=== PATIENT | female | born 1970 | race Caucasian/White ===

== ENCOUNTER → 2018-06-21 | Day surgery (SDC) | payer OTHER ==
--- NOTE | 2018-06-21 13:01 | OP ---
DATE OF OPERATION: 06/21/2018 PREOPERATIVE DIAGNOSIS: Abnormal left mammography, POSTOPERATIVE DIAGNOSIS: Abnormal left mammography. PROCEDURE: Left stereotactic needle biopsy with clips. SURGEON: Luz Polo MD ANESTHESIA: Local. COMPLICATIONS: None. This was a sterile procedure. INDICATIONS FOR PROCEDURE: Patient presented for a routine screening mammogram that again noted microcalcifications in the upper outer left breast for which a biopsy was recommended. The procedure was discussed that included need for a clip. PROCEDURE IN DETAIL: Patient was brought to [facility]. Lilian Wolff, laid prone on the [place] table. Using the lateral approach, the calcifications in the upper outer left breast were identified. A sterile prep was obtained. A target was chosen, there was a positive stroke margin. Using Betadine and 1% lidocaine, a 10-gauge Suros device was used to take several cores from this area, cores with calcifications within them. These were handled with usual calcification protocol. An 0-shaped clip was deployed in the area. Hemostasis was ensured with direct pressure. The incision was closed with Steri-Strips. She tolerated the procedure well and left the breast imaging center in good condition. LUZ POLO M.D. [id number]
--- NOTE | 2018-06-22 13:11 | PATH ---
Surgical Pathology Report Patient Name: CHAVO BANUELOS Med. Rec. #: [id number] /Age/Gender: 1970 (Age: 47) / F Account: [id number] Location: [facility] Taken: 06/21/2018 Received: 06/21/2018 Reported: 06/22/2018 Physicians: Nellie Ballesteros M.D. Specimen(s) Received A: LEFT BREAST SPECIMEN WITH CALCIFICATIONS B: LEFT SPECIMEN WITHOUT CALCIFICATIONS Clinical History Nonpalpable lesion Mammographic findings: Microcalcification, suspicious Final Diagnosis A. BREAST, LEFT WITH CALCIFICATIONS, STEREOTACTIC CORE BIOPSY: BENIGN BREAST TISSUE WITH FIBROCYSTIC CHANGES INCLUDING STROMAL FIBROSIS AND MICROCYSTS WITH ASSOCIATED RARE MICROCALCIFICATIONS. B. BREAST, LEFT WITHOUT CALCIFICATIONS, STEREOTACTIC CORE BIOPSY: BENIGN BREAST TISSUE WITH FIBROCYSTIC CHANGES INCLUDING STROMAL FIBROSIS, FOCAL COLUMNAR CELL CHANGE, AND MICROCYSTS WITH ASSOCIATED MICROCALCIFICATIONS. Electronically Signed Marilu Renee M.D. Gross Description A. Received in formalin labeled "left breast with calcifications," is a 3 cm in length x 0.3 cm in diameter barfield-yellow, cylindrical portion of fibroadipose tissue. The specimen is submitted in toto in one cassette. B. Received in formalin labeled "left breast without calcifications," is a 3.5 x 2.5 x 0.3 cm aggregate of barfield-yellow, irregular to cylindrical portions of fibroadipose tissue. The formalin is filtered and the specimen is entirely submitted in 2 cassettes. Time to formalin fixation: 5 minutes Total formalin fixation time: Approximately 6 hours. 06/21/2018 [facility]06/21/2018
== END | disposition home or self-care (01) ==
LOC: FMAMMOTONE 10:47
PROVIDERS: ATTEND Surgery
PROC: 0HBU3ZX Excision of Left Breast, Percutaneous Approach, Diagnostic (ICD-10-PCS; principal; 2018-06-21)
DX: N60.32 Fibrosclerosis of left breast (principal); N60.12 Diffuse cystic mastopathy of left breast; N64.89 Other specified disorders of breast; R92.8 Other abnormal and inconclusive findings on diagnostic imaging of breast
CPT/HCPCS: 19081; 87899; 88305-TC; A4648

== ENCOUNTER 2019-03-26 16:48 | Emergency (ER) | payer SELFPAY ==
[2019-03-26 16:56] VITALS: BP 159/88; PULSE 74; TEMP 98; BMI 22.6
[2019-03-26] MEDS ORDERED: IBUPROFEN 600 MG TABLET (FP) PO ONE ×2 (17:30→18:00)
--- NOTE | 2019-03-26 17:37 | PDOC ---
History of Present Illness - General Chief Complaint: Injury Stated Complaint: FALL Time Seen by Provider: 03/26/19 17:06 History Source: Patient Exam Limitations: No Limitations - History of Present Illness Initial Comments: 03/26/19 17:39 48 year old female with thyroid disease and no significant surgical history presents after trip and fall today while walking on the street. Reports hitting chest and lip but no head strike or loc. States no dizziness before fall. Occurred: reports: just prior to arrival Severity: reports: moderate Pain Location: reports: lower extremity Method of Injury: Yes: fall Modifying Factors: improves with: immobilization Loss of Consciousness: no loss of consciousness Associated Symptoms (Fall): denies symptoms Past History - Travel Traveled outside of the country in the last 30 days: No Close contact w/someone who was outside of country & ill: No - Past Medical History Allergies/Adverse Reactions: Allergies Allergy/AdvReac Type Severity Reaction Status Date / Time No Known Drug Allergies Allergy Verified 03/26/19 16:56 Home Medications: Ambulatory Orders Multivitamins [Multivit ([facility] Formul[facility])] 1 each PO DAILY 05/07/13 Ibuprofen 600 mg PO TID #20 tablet 03/26/19 COPD: No - Suicide/Smoking/Psychosocial Hx Smoking History: Never smoked Have you smoked in the past 12 months: No If you are a former smoker, when did you quit?: 10YRS AGO Information on smoking cessation initiated: No Hx Alcohol Use: No Drug/Substance Use Hx: No Substance Use Type: Alcohol Trauma Specific PMHX - Complaint Specific PMHX Arthritis: No Back Injury: No Neck Injury: No Hx Sacro Iliac Joint Dysfunction: No Review of Systems - Review of Systems Able to Perform ROS?: Yes Is the patient limited Green[place]ic proficient: No Constitutional: No: Chills, Fever HEENTM: No: Nose Pain, Nose Congestion Respiratory: No: Shortness of Breath, Stridor, Wheezing Cardiac (ROS): No: Lightheadedness, Palpitations ABD/GI: No: Poor Appetite, Poor Fluid Intake : No: Burning, Incontinence Musculoskeletal: Yes: Joint Pain, Joint Swelling. No: Muscle Weakness Integumentary: No: Flushing Neurological: No: Numbness *Physical Exam - Vital Signs Last Vital Signs Temp Pulse Resp BP Pulse Ox 98 F 74 17 159/88 98 03/26/19 16:53 03/26/19 16:53 03/26/19 16:53 03/26/19 16:53 03/26/19 16:53 - Physical Exam General Appearance: Yes: Nourished, Appropriately Dressed HEENT: positive: Pharynx Normal Neck: positive: Supple. negative: Lymphadenopathy (R), Lymphadenopathy (L) Respiratory/Chest: positive: Lungs Clear, Normal Breath Sounds Cardiovascular: positive: Regular Rhythm, Regular Rate Extremity: positive: Normal Capillary Refill, Other (+ tenderness of right knee with palpation over patella, pain with extension) Neurologic: positive: Fully Oriented, Alert Medical Decision Making - Medical Decision Making 03/26/19 17:58 48 year old female with thyroid disease and no significant surgical history presents after trip and fall today while walking on the street. Reports hitting chest and lip but no head strike or loc. knee injury s/p fall analgesia xray of knees 03/26/19 19:34 xray with negative results *DC/Admit/Observation/Transfer Diagnosis at time of Disposition: Knee injury Qualifiers: Encounter type: initial encounter Laterality: right Qualified Code(s): S89.91XA - Unspecified injury of right lower leg, initial encounter - Discharge Dispostion Disposition: HOME Condition at time of disposition: Good Decision to Admit order: No - Prescriptions Prescriptions: Ibuprofen 600 mg PO TID #20 tablet - Referrals Referrals: Pramod Mancuso MD [Staff Physician] - (call for appointment ) - Patient Instructions Printed Discharge Instructions: Knee Sprain Additional Instructions: Please apply ice compress to knee to right knee for 30 minutes 3 to 4 times daily Take medication twice daily for pain Remove bettye wrap for showering and sleeping Call ortho for appointment if pain persist for more than 1 week Return to ed for worsening pain, numbness or tingling - Post Discharge Activity Forms/Work/School Notes: Back to Work
== END 2019-03-26 20:11 | disposition home or self-care (01) ==
LOC: JERFT 16:48
DX: S89.81XA Other specified injuries of right lower leg, initial encounter (principal); W18.39XA Other fall on same level, initial encounter; Y93.01 Activity, walking, marching and hiking; Y92.414 Local residential or business street as the place of occurrence of the external cause; Y99.8 Other external cause status; E07.9 Disorder of thyroid, unspecified
CPT/HCPCS: 73562-TC-RT-FY; 99281-25